=== PATIENT | female | born 2000 | race Two or more races ===

== ENCOUNTER 2023-02-11 03:42 | Emergency (ER) | payer MEDICAID ==
[~2023-02-11] VITALS: Ht 149.9 cm; Wt 68.2 kg
[2023-02-11 04:04] VITALS: TEMP 98
[2023-02-11] MEDS ORDERED: ACETAMINOPHEN 500 MG TABLET PO ONE (04:15)
[2023-02-11 05:20] VITALS: BP 129/69; PULSE 72; RESP 16
== END 2023-02-11 05:41 | disposition home or self-care (01) ==
LOC: EMS 03:46
DX: S63.501A Unspecified sprain of right wrist, initial encounter (principal); W19.XXXA Unspecified fall, initial encounter; Y93.89 Activity, other specified; Y92.89 Other specified places as the place of occurrence of the external cause; Y99.8 Other external cause status
CPT/HCPCS: 99284; 73090-TC; 73110-TC; 73130-TC; Z7502; Z7610